=== PATIENT | male | born 2000 | race Caucasian/White ===

== ENCOUNTER 2018-07-06 15:12 | Emergency (ER) | payer SELFPAY ==
[2018-07-06] MEDS ORDERED: NS 0.9% 1000 ML** 1,000 ML IV ONE (17:56)
[2018-07-06 18:20] LABS: ABS Basophils 0 10^3/ul (0-0.2); ABS Eosinophils 0 10^3/ul (0-0.6); ABS Lymphocytes 2.2 10^3/ul (1.0-4.8); ABS Monocytes 0.5 10^3/ul (0-0.8); ABS Neutrophils 7.8 10^3/ul (1.5-7.7); ABS Nucleated RBC 0 10^3/ul; Eosinophil % 0.3 %; Hematocrit 47 % (42-52); Hemoglobin 15.8 g/dl (14.0-18.0); Lymphocyte % 20.6 %; Mean Corpuscular HGB Conc 34 g/dl (31-36); Mean Corpuscular Hemoglobin 30 pg (27-31); Mean Corpuscular Volume 89 fL (80-94); Nucleated Red Blood Cells % 0.1; Platelet Count 352 10^3/ul (150-450); Red Blood Count 5.26 10^6/ul (4.00-5.40); Red Cell Distribution Width 14 % (10.5-15); White Blood Count 10.6 10^3/ul (3.5-10.8)
[2018-07-06 18:26] LABS: INR 1.03 (0.77-1.02)
[2018-07-06 18:31] LABS: ALT 15 U/L (7-52); AST 17 U/L (13-39); Albumin/Globulin Ratio 1.9 (1-3); Alkaline Phosphatase 51 U/L (34-104); Anion Gap 7 mmol/L (2-11); BUN/Creatinine Ratio 12.9 (8-20); Blood Urea Nitrogen 11 mg/dL (6-24); C Reactive Protein < 1.00 mg/L (<8.01); CO2 Carbon Dioxide 29 mmol/L (22-32); Calcium 9.7 mg/dL (8.6-10.3); Chloride 103 mmol/L (101-111); EGFR Non-African American 114.9 (>60); Globulin 2.6 g/dL (2-4); Glucose 106 mg/dL (70-100); Potassium 4.2 mmol/L (3.5-5.0); Sodium 139 mmol/L (135-145); Total Protein 7.6 g/dL (6.4-8.9)
--- NOTE | 2018-07-06 19:13 | ED ---
Throat Pain/Nasal Congestion - HPI Summary HPI Summary: Patient complains of coughing up blood several times today. Symptoms started at 4 AM when patient suddenly had a cough and blood came out. Patient states some dark blood with clots intermittently as well as bright red blood. Denies any history of illness or unusual symptoms or cough prior to coughing up blood this morning. Patient eating and drinking normally, denies fever, sore throat, REYNOSO, ear pain, as CP, SOB, N/V/D, abdominal pain, change in urine, change in BM. Medical history is none. - History of Current Complaint Chief Complaint: EDGeneral Time Seen by Provider: 07/06/18 17:50 Hx Obtained From: Patient Onset/Duration: Sudden Onset Severity: Mild Associated Signs And Symptoms: Positive: Negative Cough: Other: - Allergies/Home Medications Allergies/Adverse Reactions: Allergies Allergy/AdvReac Type Severity Reaction Status Date / Time No Known Allergies Allergy Verified 07/06/18 15:30 PMH/Surg Hx/FS Hx/Imm Hx Endocrine/Hematology History: Denies: Hx Anticoagulant Therapy Cardiovascular History: Denies: Hx Cardiac Arrest History: Denies: Hx Dialysis Sensory History: Denies: Hx Eye Prosthesis EENT History: Denies: Hx Deafness Neurological History: Denies: Hx Dementia Psychiatric History: Denies: Hx Autism Infectious Disease History: No Infectious Disease History: Denies: Traveled Outside the [place] in Last 30 Days - Social History Alcohol Use: None Substance Use Type: Reports: Marijuana Smoking Status (MU): Never Smoked Tobacco Review of Systems Constitutional: Negative Eyes: Negative ENT: Negative Cardiovascular: Negative Positive: Cough Gastrointestinal: Negative Genitourinary: Negative Musculoskeletal: Negative Skin: Negative Neurological: Negative Psychological: Normal All Other Systems Reviewed And Are Negative: Yes Physical Exam Triage Information Reviewed: Yes Vital Signs On Initial Exam: Initial Vitals Temp Pulse Resp BP Pulse Ox 99.5 F 122 18 151/87 98 07/06/18 15:27 07/06/18 15:27 07/06/18 15:27 07/06/18 15:27 07/06/18 15:27 Vital Signs Reviewed: Yes Appearance: Positive: Well-Appearing Skin: Positive: Warm Head/Face: Positive: Normal Head/Face Inspection Eyes: Positive: Normal ENT: Positive: Normal ENT inspection Neck: Positive: Supple Respiratory/Lung Sounds: Positive: Clear to Auscultation Cardiovascular: Positive: Normal Abdomen Description: Positive: Nontender Musculoskeletal: Positive: Normal Neurological: Positive: Normal Psychiatric: Positive: Normal AVPU Assessment: Alert - Webster Coma Scale Best Eye Response: 4 - Spontaneous Best Motor Response: 6 - Obeys Commands Best Verbal Response: 5 - Oriented Coma Scale Total: 15 Diagnostics - Vital Signs Vital Signs Temp Pulse Resp BP Pulse Ox 07/06/18 15:27 99.5 F 122 18 151/87 98 - Laboratory Lab Results: Lab Results 07/06/18 07/06/18 07/06/18 Range/Units 18:05 18:05 18:05 WBC 10.6 (3.5-10.8) 10^3/ul RBC 5.26 (4.00-5.40) 10^6/ul Hgb 15.8 (14.0-18.0) g/dl Hct 47 (42-52) % MCV 89 (80-94) fL MCH 30 (27-31) pg MCHC 34 (31-36) g/dl RDW 14 (10.5-15) % Plt Count 352 (150-450) 10^3/ul MPV 7.0 L (7.4-10.4) fL Neut % (Auto) 73.8 % Lymph % (Auto) 20.6 % Fannin % (Auto) 5.1 % Eos % (Auto) 0.3 % Baso % (Auto) 0.2 % Absolute Neuts (auto) 7.8 H (1.5-7.7) 10^3/ul Absolute Lymphs (auto) 2.2 (1.0-4.8) 10^3/ul Absolute Monos (auto) 0.5 (0-0.8) 10^3/ul Absolute Eos (auto) 0 (0-0.6) 10^3/ul Absolute Basos (auto) 0 (0-0.2) 10^3/ul Absolute Nucleated RBC 0 10^3/ul Nucleated RBC % 0.1 INR (Anticoag Therapy) 1.03 H (0.77-1.02) Sodium 139 (135-145) mmol/L Potassium 4.2 (3.5-5.0) mmol/L Chloride 103 (101-111) mmol/L Carbon Dioxide 29 (22-32) mmol/L Anion Gap 7 (2-11) mmol/L BUN 11 (6-24) mg/dL Creatinine 0.85 (0.67-1.17) mg/dL Est GFR ( Amer) 139.0 (>60) Est GFR (Non-Af Amer) 114.9 (>60) BUN/Creatinine Ratio 12.9 (8-20) Glucose 106 H (70-100) mg/dL Lactic Acid (0.5-2.0) mmol/L Calcium 9.7 (8.6-10.3) mg/dL Total Bilirubin 0.60 (0.2-1.0) mg/dL AST 17 (13-39) U/L ALT 15 (7-52) U/L Alkaline Phosphatase 51 (34-104) U/L C-Reactive Protein < 1.00 (<8.01) mg/L Total Protein 7.6 (6.4-8.9) g/dL Albumin 5.0 (3.2-5.2) g/dL Globulin 2.6 (2-4) g/dL Albumin/Globulin Ratio 1.9 (1-3) Blood Type Antibody Screen 07/06/18 07/06/18 Range/Units 18:05 18:05 WBC (3.5-10.8) 10^3/ul RBC (4.00-5.40) 10^6/ul Hgb (14.0-18.0) g/dl Hct (42-52) % MCV (80-94) fL MCH (27-31) pg MCHC (31-36) g/dl RDW (10.5-15) % Plt Count (150-450) 10^3/ul MPV (7.4-10.4) fL Neut % (Auto) % Lymph % (Auto) % Fannin % (Auto) % Eos % (Auto) % Baso % (Auto) % Absolute Neuts (auto) (1.5-7.7) 10^3/ul Absolute Lymphs (auto) (1.0-4.8) 10^3/ul Absolute Monos (auto) (0-0.8) 10^3/ul Absolute Eos (auto) (0-0.6) 10^3/ul Absolute Basos (auto) (0-0.2) 10^3/ul Absolute Nucleated RBC 10^3/ul Nucleated RBC % INR (Anticoag Therapy) (0.77-1.02) Sodium (135-145) mmol/L Potassium (3.5-5.0) mmol/L Chloride (101-111) mmol/L Carbon Dioxide (22-32) mmol/L Anion Gap (2-11) mmol/L BUN (6-24) mg/dL Creatinine (0.67-1.17) mg/dL Est GFR ( Amer) (>60) Est GFR (Non-Af Amer) (>60) BUN/Creatinine Ratio (8-20) Glucose (70-100) mg/dL Lactic Acid 1.1 (0.5-2.0) mmol/L Calcium (8.6-10.3) mg/dL Total Bilirubin (0.2-1.0) mg/dL AST (13-39) U/L ALT (7-52) U/L Alkaline Phosphatase (34-104) U/L C-Reactive Protein (<8.01) mg/L Total Protein (6.4-8.9) g/dL Albumin (3.2-5.2) g/dL Globulin (2-4) g/dL Albumin/Globulin Ratio (1-3) Blood Type B Negative Antibody Screen Negative Result Diagrams: 07/06/18 18:05 07/06/18 18:05 Lab Statement: Any lab studies that have been ordered have been reviewed, and results considered in the medical decision making process. EENT Course/Dx - Course Course Of Treatment: Patient complains of coughing up blood several times today. Symptoms started at 4 AM when patient suddenly had a cough and blood came out. Patient states some dark blood with clots intermittently as well as bright red blood. Denies any history of illness or unusual symptoms or cough prior to coughing up blood this morning. Patient eating and drinking normally, denies fever, sore throat, REYNOSO, ear pain, as CP, SOB, N/V/D, abdominal pain, change in urine, change in BM. Medical history is none. Physical exam unremarkable. Vital signs within normal limits. Labs unremarkable. Patient has produced just a couple very small blood clots when coughing while here in the ED. Bleeding with cough appears to have mostly resolved. Advised patient to follow up with GI for scope if symptoms persisted. Patient understands and approves of plan. - Diagnoses Provider Diagnoses: Coughing blood Discharge - Sign-Out/Discharge Documenting (check all that apply): Patient Departure - Discharge Plan Condition: Stable Disposition: HOME Patient Education Materials: Hemoptysis (ED) Referrals: No Primary Care Phys,NOPCP [Primary Care Provider] - Additional Instructions: Follow-up with contact center analyst Dr. Block for further evaluation of blood when you cough. Return to the ED for any new or worsening symptoms - Billing Disposition and Condition Condition: STABLE Disposition: Home
[2018-07-06 19:32] VITALS: BP 131/64
== END 2018-07-06 19:28 | disposition home or self-care (01) ==
LOC: ED 15:12
DX: R04.2 Hemoptysis (principal)
CPT/HCPCS: 36415; 80053; 83605; 85025; 85610; 86140; 86850; 86900; 86901; 96360; 99282